=== PATIENT | female | born 1960 | race Caucasian/White ===

== ENCOUNTER 2024-08-22 08:16 | Day surgery (SDC) | payer MEDICARE ==
[~2024-08-22] VITALS: Ht 154.9 cm; Wt 58.5 kg
[~2024-08-22 08:16] MED LIST: AMLO1TAB24 PO; ECOT81TA5 PO; EZET10TA21 PO; METO1TAB87 PO; MIDAZOLAM INJ 2MG/2ML VIAL As Ordered ONE; PHENYLEPHRINE 10% OPHTH SOL 5ML OD PRN; fentaNYL 100 MCG/2 ML INJECTION As Ordered ONE
[2024-08-22] MEDS: PHENYLEPHRINE 2.5% OPHTH SOL 2ML OD SCH (09:11)
[2024-08-22] MEDS: OFLOXACIN 0.3 % (OCUFLOX) OPTH SOL 5ML OD ONE (09:11)
[2024-08-22] MEDS: TROPICAMIDE 1% OPHTH SOLN 15ML OD SCH (09:11)
[2024-08-22] MEDS: ATROPINE SULFATE 1% OPHTH SOLN 2ML BTL OD SCH (09:11)
[2024-08-22] MEDS: LIDOCAINE 3.5 % 1ML OPHTH TOPICAL GEL OU ONE (09:11)
[2024-08-22] MEDS: LIDOCAINE 1% SDV 5ML VIAL As Ordered ONE (10:20)
[2024-08-22] MEDS: CEFUROXIME 1MG/0.1ML INTRACAMERAL INJ As Ordered ONE (10:21)
[2024-08-22] MEDS: BSS IRRIG/VANCO(10MG)/TOBRA(5MG)/EPINEPH(1:1000-0.5CC)500ML BAG-ORONLY As Ordered ONE (10:21)
[2024-08-22 10:40] VITALS: BP 120/60; TEMP 97.8; O2SAT 94
== END 2024-08-22 10:45 | disposition home or self-care (01) ==
LOC: M SDC 08:16
PROVIDERS: ATTEND Ophthalmology
DX: H25.11 Age-related nuclear cataract, right eye (principal); I25.10 Atherosclerotic heart disease of native coronary artery without angina pectoris; I25.2 Old myocardial infarction; Z95.5 Presence of coronary angioplasty implant and graft; Z79.899 Other long term (current) drug therapy; F17.210 Nicotine dependence, cigarettes, uncomplicated
CPT/HCPCS: 66984; J0697; J2250; J3010; V2632

== ENCOUNTER 2024-09-19 07:47 | Day surgery (SDC) | payer MEDICARE ==
[~2024-09-19] VITALS: Ht 154.9 cm; Wt 59.2 kg
[~2024-09-19 07:47] MED LIST changes: -MIDAZOLAM INJ 2MG/2ML VIAL As Ordered ONE; -PHENYLEPHRINE 10% OPHTH SOL 5ML OD PRN; +PHENYLEPHRINE 10% OPHTH SOL 5ML OS PRN; -fentaNYL 100 MCG/2 ML INJECTION As Ordered ONE
[2024-09-19] MEDS: OFLOXACIN 0.3 % (OCUFLOX) OPTH SOL 5ML OS ONE (08:00)
[2024-09-19] MEDS: LIDOCAINE 3.5 % 1ML OPHTH TOPICAL GEL OU ONE (08:00)
[2024-09-19] MEDS ORDERED: MIDAZOLAM INJ 2MG/2ML VIAL As Ordered ONE (09:00)
[2024-09-19] MEDS ORDERED: fentaNYL 100 MCG/2 ML INJECTION As Ordered ONE (09:01)
[2024-09-19] MEDS: ATROPINE SULFATE 1% OPHTH SOLN 2ML BTL OS SCH (10:12)
[2024-09-19] MEDS: PHENYLEPHRINE 2.5% OPHTH SOL 2ML OS SCH (10:12)
[2024-09-19] MEDS: TROPICAMIDE 1% OPHTH SOLN 15ML OS SCH (10:12)
[2024-09-19] MEDS: LIDOCAINE 1% SDV 5ML VIAL As Ordered ONE (10:55)
[2024-09-19] MEDS: BSS IRRIG/VANCO(10MG)/TOBRA(5MG)/EPINEPH(1:1000-0.5CC)500ML BAG-ORONLY As Ordered ONE (10:55)
[2024-09-19] MEDS: CEFUROXIME 1MG/0.1ML INTRACAMERAL INJ As Ordered ONE (10:55)
[2024-09-19 11:05] VITALS: BP 121/62; TEMP 97.7; O2SAT 96
== END 2024-09-19 11:22 | disposition home or self-care (01) ==
LOC: M SDC 07:47
PROVIDERS: ATTEND Ophthalmology
DX: H25.12 Age-related nuclear cataract, left eye (principal); I25.10 Atherosclerotic heart disease of native coronary artery without angina pectoris; I25.2 Old myocardial infarction; E78.00 Pure hypercholesterolemia, unspecified; Z95.5 Presence of coronary angioplasty implant and graft; F17.210 Nicotine dependence, cigarettes, uncomplicated; Z79.82 Long term (current) use of aspirin; Z79.899 Other long term (current) drug therapy
CPT/HCPCS: 66984; J0697; J2250; J3010; V2632